=== PATIENT | female | born 1995 | race Caucasian/White ===

== ENCOUNTER → 2021-02-04 09:32 | Outpatient (CLI) | payer BC, SELFPAY ==
--- NOTE | ~2021-02-04 | US_ITS ---
US breast RT limited 02/04/2021 10:00 Indication: Follow-up right breast mass Procedure: High-resolution ultrasound of the right breast Comparison: Ultrasound dated 11/13/2018 and 04/27/2018 Findings: At 2:00, 4 cm from the nipple, there is an oval hypoechoic mass measuring 11 x 6 x 11 mm co mpared with 10 x 10 x 8 mm on prior examination. At 2:00, 3 cm from the nipple, there is a slightly i rregular shaped hypoechoic mass measuring 11 x 12 x 8 mm, likely benign. Impression: 1: Probable benign right breast masses. Follow-up right breast ultrasound in 6 months recommended. BI-RADS CATEGORY 3-PROBABLY BENIGN FINDING RECOMMENDATION: Six-month follow-up right breast ultrasound Reviewed, dictated and finalized at location A. Impression: 1: Probable benign right breast masses. Follow-up right breast ultrasound in 6 months recommended. BI-RADS CATEGORY 3-PROBABLY BENIGN FINDING RECOMMENDATION: Six-month follow-up right breast ultrasound
== END ==
PROVIDERS: Visit Provider Nurse Practitioner
DX: N60.01 Solitary cyst of right breast (principal); R92.8 Other abnormal and inconclusive findings on diagnostic imaging of breast
CPT/HCPCS: 76642

== ENCOUNTER 2022-04-19 10:35 | Emergency (ER) | payer BC, SELFPAY ==
[2022-04-19 11:48] VITALS: BP 136/76; PULSE 90; RESP 16; TEMP 35.6; O2SAT 99
--- NOTE | 2022-04-19 12:10 | ED.URI ---
HPI - URI/Sore Throat General Chief Complaint: Upper Respiratory Infection Stated Complaint: sore throat/fever Time Seen by Provider: 04/19/22 12:10 History of Present Illness HPI Narrative: 27 y/o female presented for c/o sore throat, pain worse with swallowing, fever, and body aches. Onset 2 days. Endorses temp up to 102 this morning. Rates pain 5/10. Taking Tylenol and ibuprofen for symptoms. Denies sob, wheezing, n/v/d. Denies sick contacts. Related Data Home Medications Medication Instructions Recorded Confirmed medroxyprogesterone 150 mg/mL 150 mg IM DIRECTED 04/19/22 04/19/22 intramuscular syringe Allergies Allergy/AdvReac Type Severity Reaction Status Date / Time No Known Allergies Allergy Mild Verified 04/19/22 11:59 Review of Systems Review of Systems: Per HPI Exam Narrative: GENERAL: Ill-appearing, no acute distress. EYES: conjunctivae clear ENT: Mucous membranes moist. TMs pearly liu with normal light reflex bilaterally; no tragal tenderness. Oropharynx erythematous Tonsils enlarged 2+ with white exudate. No drooling, no hoarseness, no trismus, uvula midline. No tripod positioning, hot potato voice, or soft palate swelling. NECK: Supple. No lymphadenopathy CHEST: Clear to auscultation, breath sounds equal. No respiratory distress, speaks in full sentences. HEART: Regular rate and rhythm. No murmur heard. SKIN: Warm, dry, no rash. NEURO: Alert and oriented x3. Course Course Emergency Course: Patient is aware of diagnosis, understands and agrees to treatment plan. Anticipatory guidance given. Patient agrees to follow-up as directed and is aware of reasons to seek care at the emergency department. Portions of this record may have been created with voice recognition software Level of Care: Express Care Visit Vital Signs Vital signs: Vital Signs Temperature 96.0 F L 04/19/22 11:48 Pulse Rate 90 04/19/22 11:48 Respiratory Rate 16 04/19/22 11:48 Blood Pressure 136/76 04/19/22 11:48 Pulse Oximetry 99 04/19/22 11:48 Oxygen Delivery Room Air 04/19/22 11:48 Temperature 96.0 F L 04/19/22 11:48 Pulse Rate 90 04/19/22 11:48 Respiratory Rate 16 04/19/22 11:48 Blood Pressure 136/76 04/19/22 11:48 Pulse Oximetry 99 04/19/22 11:48 Oxygen Delivery Room Air 04/19/22 11:48 MDM - URI/Sore Throat MDM Narrative Medical decision making narrative: Flu and COVID negative. Results reviewed with patient. Due to lack of resources, unable to test for rapid strep at this time. Patient verbalizes understanding. Will treat empirically based on PE. Advised supportive measures and signs and symptoms to go to the ER. Patient is appropriate for outpatient treatment and follow-up. Differential Diagnosis Differential diagnosis: Likely upper respiratory infection, viral infection, influenza and pharyngitis Discharge Plan Discharge Clinical Impression: Pharyngitis Patient Disposition: Home, Self-Care Condition: Stable Instructions: Antibiotic Form, Strep Throat (ED) Additional Instructions: - Take the antibiotic as directed. Fever and sore throat typically resolve within one to three days. Most patients can return to work after 12 to 24 hours of antibiotic therapy, provided you are fever free and otherwise well. -Eat and drink things that are easy to swallow, like soft foods, cool liquids, tea with honey, or popsicles . -Salt water gargles and/or may use topical anesthetic ( Chloraseptic spray) or lozenges to relieve dryness or throat pain -Alternate Tylenol and ibuprofen as needed for pain and fever as directed. -Frequent hand washing or hand case briefer is one of the best ways to prevent spread of infection. Throw away the toothbrush after 24hours of antibiotic. -Follow up with primary care provider in 2-3 days if condition is not improving -Go to the ER if you have trouble breathing, cannot drink enough fluids, have muffled voice or drooling, diff
== END 2022-04-19 12:19 | disposition home or self-care (01) ==
PROVIDERS: Emergency Provider Nurse Practitioner Family
DX: J02.9 Acute pharyngitis, unspecified (principal); Z20.822 Contact with and (suspected) exposure to COVID-19
CPT/HCPCS: 87081; 87426; 87804; 99213; C9803; G0463